=== PATIENT | male | born 1995 | race Two or more races ===

== ENCOUNTER 2023-08-28 20:31 | Emergency (ER) | payer BC, OTHER ==
[~2023-08-28] VITALS: Ht 177.8 cm; Wt 101.2 kg
[2023-08-28] MEDS: ACETAMINOPHEN 325 MG TAB PO ONE (20:44)
[2023-08-28 21:12] LABS: Rapid Influenza A Negative (Negative); Rapid Influenza B Negative (Negative)
[2023-08-28 21:13] LABS: COVID19 ANTIGEN SOFIA FIA NEGATIVE (NEGATIVE)
[2023-08-29] MEDS ORDERED: AMOX500C2 PO (01:25)
[2023-08-29 01:45] VITALS: BP 123/74; PULSE 93; RESP 18; TEMP 98.5; O2SAT 97
[2023-08-29] MEDS: DexAMETHasone SOD PHOS 10MG/1ML VIAL INJ IM ONE (01:47)
== END 2023-08-29 02:44 | disposition home or self-care (01) ==
LOC: ER 20:31
DX: J03.90 Acute tonsillitis, unspecified (principal); Z20.822 Contact with and (suspected) exposure to COVID-19
CPT/HCPCS: 36415; 71046; 87426; 87804; 96372; 99284; J1100